=== PATIENT | female | born 1950 | race Caucasian/White ===

== ENCOUNTER 2021-04-27 10:45 | Day surgery (SDCO) | payer MEDICARE, OTHER ==
[~2021-04-27] VITALS: Ht 162.6 cm; Wt 64.9 kg
[2021-04-27 14:30] LABS: ALBUMIN 3.2 g/dL (3.4-5.0); BILIRUBIN - TOTAL 0.4 mg/dL (0.2-1.0); BUN/CREAT RATIO (CALC) 17.8 RATIO; CREATININE 0.73 mg/dL (0.51-0.95); POTASSIUM 4.8 mmol/L (3.5-5.1); TOTAL PROTEIN 6.2 g/dL (6.4-8.2)
[2021-04-27 15:40] LABS: BASOPHIL 0.7 % (0-2); EOSINOPHIL 1.4 % (0-7); HCT 38.6 % (37.0-47.0); HGB 12.9 g/dl (12.5-16.0); LYMPHOCYTE 26.5 % (15-48); MCH 29.3 pg (25.0-31.0); MCHC 33.4 g/dL (32.0-36.0); MCV 87.5 fL (78.0-100.0); MONOCYTE 8.3 % (0-12); MPV 9.4 fL (6.0-9.5); NEUTROPHIL 62.2 % (41-80); NRBC 0; PLT 214 K/uL (150-400); RBC 4.41 M/uL (4.20-5.40); RDW 12.4 % (11.5-14.0); WBC 5.8 K/uL (4.0-10.5)
[2021-04-27] MEDS ORDERED: BENAZEPRIL HCL40 MG PO (18:16)
[2021-04-27] MEDS ORDERED: SYNTHROID88 MC1 PO (18:17)
[2021-04-27] MEDS ORDERED: OMEPRAZOLE40 MG PO (18:17)
[2021-04-27] MEDS ORDERED: LOPRESSOR25 MG PO (18:19)
[2021-04-28 05:40] LABS: EOSINOPHIL 2.9 % (0-7); HCT 38.2 % (37.0-47.0); HGB 12.7 g/dl (12.5-16.0); MCH 30.1 pg (25.0-31.0); MCHC 33.2 g/dL (32.0-36.0); MCV 90.5 fL (78.0-100.0); MONOCYTE 9.1 % (0-12); MPV 9.1 fL (6.0-9.5); NEUTROPHIL 56.6 % (41-80); NRBC 0; PLT 205 K/uL (150-400); RBC 4.22 M/uL (4.20-5.40); RDW 12.6 % (11.5-14.0); WBC 4.8 K/uL (4.0-10.5)
[2021-04-28 05:59] LABS: BILIRUBIN - TOTAL 0.6 mg/dL (0.2-1.0); BUN/CREAT RATIO (CALC) 18.3 RATIO; CREATININE 0.71 mg/dL (0.51-0.95); GLOBULIN (CALCULATION) 2.9 g/dL; POTASSIUM 3.7 mmol/L (3.5-5.1); TOTAL PROTEIN 5.9 g/dL (6.4-8.2)
--- NOTE | 2021-04-28 13:00 | NUR ---
1300 REPORTS DIZZINESS AND NAUSEA FEELING NOTED, "I FEEL JUST LIKE IT DID BEFORE I CAME IN." V/S ARE STABLE AND REPORTS NO INCREASED HEART RATE AT THE TIME OF THIS SPELL. TALKED TO THE PATIENT ABOUT ANY OTHER SYMPTOMS AND WE TALKED SHE REPORTS THAT SHE IS STARTING TO FEEL BETTER. DR. CORRALES WAS NOTIFED OFF THE [facility]. HE INSTRUCTED THE PATIENT TO FOLLOW WITH THE CARDICOLOGLIST AND 24 HOUR URINE AT HOME. CONDITION WAS STABLE AT THE TIME OF DISCHARGE.
== END 2021-04-28 14:17 | disposition home or self-care (01) ==
LOC: FER 10:45 → FMS 15:13
PROVIDERS: Internal Medicine; ADMIT Family Medicine
DX: I10 Essential (primary) hypertension (principal); I47.1 Supraventricular tachycardia; R07.9 Chest pain, unspecified; F41.9 Anxiety disorder, unspecified; R00.1 Bradycardia, unspecified; R00.2 Palpitations; R60.0 Localized edema; R53.1 Weakness; E03.9 Hypothyroidism, unspecified; R55 Syncope and collapse; Z85.51 Personal history of malignant neoplasm of bladder; Z20.822 Contact with and (suspected) exposure to COVID-19; Z79.899 Other long term (current) drug therapy
CPT/HCPCS: 36415; 70450; 78452; 80053; 83735; 84443; 84484; 85025; 93005; 93017; A9500; G0378; J0153; J3360; J7030; U0002